=== PATIENT | female | born 1980 | race Caucasian/White ===

== ENCOUNTER → 2017-01-22 | Outpatient (REF) | payer BC, OTHER | LOC: M LAB REF 13:44 | PROVIDERS: ATTEND Advanced Practice Midwife | DX: Z11.3 Encounter for screening for infections with a predominantly sexual mode of transmission (principal) ==

== ENCOUNTER → 2017-05-09 | Outpatient (REF) | payer BC ==
[2017-05-09 15:00] LABS: BASO # 0.1 10^3/uL (0.0-0.2); BASO % 0.7 % (0.0-1.0); EOS # 0.1 10^3/uL (0.0-0.50); EOS % 1.4 % (0.0-3.0); IMMATURE GRANULOCYTE % 0.2 % (0-0); LYMPH # 2.8 10^3/uL (1.5-4.5); LYMPH % 32.9 % (24.0-44.0); MEAN CORPUSCULAR HGB CONC 33.7 g/dl (32.0-36.5); MONO # 0.5 10^3/uL (0.0-0.8); MONO % 5.6 % (0.0-5.0); NEUTROPHILS % 59.2 % (36.0-66.0); PLATELET COUNT, AUTOMATED 205 10^3/uL (150-450); RED CELL DISTRIBUTION WIDTH 12.6 % (11.5-14.5); WHITE BLOOD COUNT 8.5 10^3/uL (4.0-10.0)
[2017-05-09 15:33] LABS: ALBUMIN 4.7 GM/DL (3.2-5.2); ALBUMIN/GLOBULIN RATIO 1.68 (1.00-1.93); ALKALINE PHOSPHATASE 76 U/L (45-117); ALT/SGPT 21 U/L (12-78); ANION GAP 7 MEQ/L (8-16); AST/SGOT 19 U/L (7-37); BILIRUBIN,TOTAL 0.6 MG/DL (0.2-1.0); BLOOD UREA NITROGEN 17 MG/DL (7-18); CARBON DIOXIDE LEVEL 30 MEQ/L (21-32); CHLORIDE LEVEL 102 MEQ/L (98-107); CHOLESTEROL LEVEL 199 MG/DL (<200); CREATININE FOR GFR 0.74 MG/DL (0.55-1.02); FREE T4 0.92 NG/DL (0.76-1.46); GLOMERULAR FILTRATION RATE > 60.0 (>60); GLUCOSE, FASTING 89 MG/DL (70-105); POTASSIUM SERUM 4.1 MEQ/L (3.5-5.1); SODIUM LEVEL 139 MEQ/L (136-145); TOTAL PROTEIN 7.5 GM/DL (6.4-8.2); TRIGLYCERIDES LEVEL 57 MG/DL (<150)
== END ==
LOC: M SFHCSACK 10:16
PROVIDERS: ATTEND Physician Assistant
DX: N92.6 Irregular menstruation, unspecified (principal); Z13.220 Encounter for screening for lipoid disorders; Z13.29 Encounter for screening for other suspected endocrine disorder; Z13.21 Encounter for screening for nutritional disorder

== ENCOUNTER → 2017-12-08 | Outpatient (CLI) | payer BC | LOC: M WUC 09:10 | DX: M25.571 Pain in right ankle and joints of right foot (principal); S92.424A Nondisplaced fracture of distal phalanx of right great toe, initial encounter for closed fracture; X58.XXXA Exposure to other specified factors, initial encounter; Y92.9 Unspecified place or not applicable; M79.89 Other specified soft tissue disorders | CPT/HCPCS: 73610 ==

== ENCOUNTER → 2018-01-27 | Outpatient (CLI) | payer BC | LOC: M WUC 10:55 | DX: S29.011A Strain of muscle and tendon of front wall of thorax, initial encounter (principal); W18.30XA Fall on same level, unspecified, initial encounter; Y92.009 Unspecified place in unspecified non-institutional (private) residence as the place of occurrence of the external cause | CPT/HCPCS: 71101 ==

== ENCOUNTER 2018-02-02 20:26 | Emergency (ER) | payer BC ==
[2018-02-02] MEDS: KETOROLAC 30 MG/ML VIAL (J1885) IV (21:21)
[2018-02-02] MEDS: NS 1,000 ML IV (21:21)
[2018-02-02 21:27] LABS: BASO % 0.4 % (0.0-1.0); EOS # 0.2 10^3/uL (0.0-0.50); EOS % 2.3 % (0.0-3.0); HEMATOCRIT 38.2 % (36.0-47.0); IMMATURE GRANULOCYTE % 0.2 % (0-3.0); LYMPH # 3.6 10^3/uL (1.5-4.5); MEAN CORPUSCULAR HEMOGLOBIN 33.2 pg (27.0-33.0); MEAN CORPUSCULAR VOLUME 97.4 fl (80.0-96.0); MONO # 0.7 10^3/uL (0.0-0.8); MONO % 7.3 % (0.0-5.0); NEUTROPHILS # 4.5 10^3/uL (1.8-7.7); NEUTROPHILS % 49.8 % (36.0-66.0); PLATELET COUNT, AUTOMATED 218 10^3/uL (150-450); RED BLOOD COUNT 3.92 10^6/uL (4.00-5.40); RED CELL DISTRIBUTION WIDTH 13.2 % (11.5-14.5); WHITE BLOOD COUNT 9.1 10^3/uL (4.0-10.0)
[2018-02-02 21:35] LABS: CONTROL LINE HCG INT CTR LINE PRESENT; HCG, SERUM QUALITATIVE NEGATIVE (NEGATIVE)
[2018-02-02 21:42] LABS: INR 1.07
[2018-02-02 21:43] LABS: PARTIAL THROMBOPLASTIN TIME 25.8 SECONDS (25.4-37.6)
[2018-02-02 22:07] LABS: ANION GAP 7 MEQ/L (8-16); BLOOD UREA NITROGEN 20 MG/DL (7-18); CALCIUM LEVEL 8.6 MG/DL (8.5-10.1); CARBON DIOXIDE LEVEL 29 MEQ/L (21-32); CHLORIDE LEVEL 103 MEQ/L (98-107); CK-MB VALUE MASS < 1.0 NG/ML (<3.6); CPK CREATINE PHOSPHOKINASE 125 U/L (26-192); CREATININE FOR GFR 0.78 MG/DL (0.55-1.30); GLOMERULAR FILTRATION RATE > 60.0 (>60); GLUCOSE, FASTING 91 MG/DL (70-100); POTASSIUM SERUM 3.9 MEQ/L (3.5-5.1); SODIUM LEVEL 139 MEQ/L (136-145); TROPONIN I < 0.02 NG/ML (< 0.10)
[2018-02-02] MEDS ORDERED: ISOVUE-370 76% 100ML VIAL (Q9967) As Ordered (22:41)
[2018-02-02] MEDS: dexameTHASONE 20 MG/5 ML VIAL (J1100) IV (23:57)
== END 2018-02-03 00:11 | disposition home or self-care (01) ==
LOC: M ED 02-03 00:11
DX: R07.1 Chest pain on breathing (principal); I45.19 Other right bundle-branch block; F41.9 Anxiety disorder, unspecified; F32.9 Major depressive disorder, single episode, unspecified; Z72.0 Tobacco use; Z97.5 Presence of (intrauterine) contraceptive device; Z98.82 Breast implant status; Z79.899 Other long term (current) drug therapy
CPT/HCPCS: J1100

== ENCOUNTER → 2018-08-29 | Outpatient (REF) | payer BC ==
[~2018-08-29] MED LIST: DULO1CAP; KETO10TAB PO; PRED20TA PO
== END ==
LOC: M LAB REF 12:35
PROVIDERS: ATTEND Physician Assistant
DX: J02.9 Acute pharyngitis, unspecified (principal)

== ENCOUNTER → 2019-03-19 | Outpatient (REF) | payer BC ==
[~2019-03-19] MED LIST changes: -DULO1CAP; +DULO1CAP4
[2019-03-23 14:40] LABS: HPV HYBRID CAPTURE II Positive (Negative)
== END ==
LOC: M LAB REF 17:45
PROVIDERS: ATTEND Advanced Practice Midwife
DX: Z12.4 Encounter for screening for malignant neoplasm of cervix (principal)
CPT/HCPCS: 87624; G0123

== ENCOUNTER → 2019-03-25 | Outpatient (CLI) | payer BC ==
[2019-03-25 13:23] LABS: FREE T4 0.73 NG/DL (0.76-1.46); PROLACTIN 3.8 NG/ML; THYROID STIMULATING HORMONE 0.758 uIU/ML (0.358-3.740)
[2019-03-28 00:06] LABS: 17 HYDROXY PROGESTERONE 33 ng/dL (.); DEHYDROEPIANDROSTERONE SULFATE 181.9 ug/dL (57.3-279.2); INSULIN LEVEL 3.9 uIU/mL (2.6-24.9); TESTOSTERONE FREE (DIRECT) 1.5 pg/mL (0.0-4.2)
== END ==
LOC: M WUC 09:50
PROVIDERS: ATTEND Advanced Practice Midwife
DX: R63.5 Abnormal weight gain (principal)

== ENCOUNTER → 2019-08-31 | Outpatient (POV) | payer BC ==
[~2019-08-31] VITALS: Ht 170.2 cm; Wt 59.1 kg
[2019-08-31 09:30] VITALS: BP 127/80
--- NOTE | 2019-09-01 12:21 | IRCOV ---
[facility] IR Consult Office Visit IR Consult Office Visit DATE: Aug 31, 2019 REASON FOR CONSULTATION/CHIEF COMPLAINT: Varicose veins. 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 No prior varicose vein surgery. She is on her feet all day due to her work. Positive family history of varicose veins. No prior deep vein thrombosis. ALLERGIES: Please see below. HOME MEDICATIONS: Please see below. PAST MEDICAL HISTORY: Noncontributory PAST SURGICAL HISTORY: Cardiac ablation 2004 Breast augmentation 2009 Tubal ligation 2009 FAMILY HISTORY: Varicose veins SOCIAL HISTORY: pediatric social worker. Current smoker, occasional alcohol and marijuana. REVIEW OF SYSTEMS: Otherwise negative PHYSICAL EXAMINATION: VITAL SIGNS: Please see below. GENERAL APPEARANCE: Appears well. Comfortable at rest. HEENT: No scleral icterus. RESPIRATORY: Normal breathing at rest. CARDIOVASCULAR: Normal rate. ABDOMEN: Soft nontender. EXTREMITIES: Left lower extremity: Visible bulging varicose veins posterior to the calf and also along the GSV distribution. Tender on palpation but compressible. No skin thickening or lipodermatosclerosis. No hemosiderin deposition. No edema. Skin warm to touch. Right lower extremity:Visible bulging varicose veins posterior to the calf and also along the GSV distribution. Tender on palpation but compressible. No skin thickening or lipodermatosclerosis. No hemosiderin deposition. No edema. Skin warm to touch. NEUROLOGICAL: Alert and oriented. PSYCHIATRIC: Appropriate to circumstance. LABORATORY DATA: No recent labs. Imaging: No lower extremity venous reflux study. 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 I'll obtain a bilateral lower extremity venous reflux study to look for incompetency of the superficial veins. If this is positive, she will be a good candidate for EVLT therapy. We'll call the patient back once the study is done. Bilateral thigh-high compression stockings ordered. I spent 30 minutes in consultation with the patient. Thank you for this referral. Erica Faust Allergies Coded Allergies: MS - No Known Drug Allergy (Verified Allergy, Unknown, 09/11/12) Home Medications Scheduled Ketorolac Tromethamine (Ketorolac Tromethamine), 10 MG PO TID Prednisone (Prednisone), 60 MG PO DAILY Miscellaneous Medications Duloxetine Hcl (Duloxetine HCl), (Reported) VS, I&O, 24H, Fishbone Vital Signs/I&O Vital Signs Date Time Temp Pulse Resp B/P (MAP) Pulse Ox O2 Delivery O2 Flow Rate FiO2 08/31/19 09:30 97.9 83 16 127/80 (96) 100 MALLORY JEWELL MD Sep 01, 2019 12:21
== END ==
LOC: M IRPOV 09:18
PROVIDERS: ATTEND Radiology Diagnostic Radiology
DX: I83.813 Varicose veins of bilateral lower extremities with pain (principal); F17.210 Nicotine dependence, cigarettes, uncomplicated; F12.90 Cannabis use, unspecified, uncomplicated; Z98.51 Tubal ligation status; Z98.82 Breast implant status

== ENCOUNTER → 2019-09-01 | Outpatient (CLI) | payer BC ==
--- NOTE | 2019-09-01 12:30 | REP ---
Clinical: Varicosities. Technique: Real time hopkins scale and color Doppler evaluation of the bilateral lower extremities using linear high frequency transducer. Findings: Bilateral lower extremities demonstrate normal compressibility, flow, and wave characteristics in response to respiration and augmentation without evidence for deep venous thrombosis. Right lower extremity demonstrates very minimal reflux through the popliteal vein when standing. Left lower extremity demonstrates reflux through the common femoral vein, superficial femoral vein, and popliteal vein as well as reflux through the proximal and mid greater saphenous vein with small perforating collaterals. Proximal greater saphenous vein at the saphenofemoral junction measures 5.3 mm diameter with reflux duration of 1.8 seconds while the mid greater saphenous vein at the thigh measures 3.1 mm diameter with reflux duration of 8.0 seconds. Impression: 1. No evidence for deep venous thrombosis. 2. Reflux through the deep and superficial system of the left lower extremity. Electronically Signed by Brock Rose MD 09/01/2019 12:22 P
== END ==
LOC: M RAD 09:26
PROVIDERS: ATTEND Radiology Diagnostic Radiology
DX: I83.813 Varicose veins of bilateral lower extremities with pain (principal)

== ENCOUNTER → 2019-09-08 | Outpatient (CLI) | payer BC | LOC: M LABSMTC 12:36 | PROVIDERS: ATTEND Family Medicine | DX: Z11.59 Encounter for screening for other viral diseases (principal); Z20.828 Contact with and (suspected) exposure to other viral communicable diseases ==

== ENCOUNTER → 2019-10-05 | Outpatient (POV) | payer BC ==
--- NOTE | 2019-10-06 13:59 | IRPN ---
[facility] IR Progress Note IR Progress Note DATE: Oct 05, 2019 Tele follow up FOLLOW-UP: Patient with symptomatic lower extremity varicose veins presents for US results and follow up. Imaging: I personally reviewed the US venous reflux study of both lower extremities performed august 2019. There is abnormal reflux in the left GSV > 0.5 seconds. The right GSV does not show reflux. IMPRESSION: Patient with symptomatic left worse then right lower extremity varicose veins has positive reflux in the left GSV. This is indication for treatment. We will schedule the patient for left leg GSV EVLT. Thank you for this referral Allergies Coded Allergies: MS - No Known Drug Allergy (Verified Allergy, Unknown, 09/11/12) MALLORY JEWELL MD Oct 06, 2019 13:59
== END ==
LOC: M TMIRPOV 09:23
PROVIDERS: ATTEND Radiology Diagnostic Radiology
DX: I83.893 Varicose veins of bilateral lower extremities with other complications (principal)

== ENCOUNTER → 2019-10-22 | Outpatient (CLI) | payer BC ==
[~2019-10-22] MED LIST changes: +HYDR-3713 PO; +LIDOCAINE 1% MDV 20ML VIAL As Ordered ONE; +LIDOCAINE 2% MDV 20ML VIAL As Ordered ONE; +MIDAZOLAM INJ 2MG/2ML VIAL (J2250 PER 1MG) As Ordered ONE; +PROMETHAZINE INJ 25 MG/ML VIAL (J2550) As Ordered ONE; +diphenhydrAMINE 50MG/ML VIAL (J1200) As Ordered ONE; +fentaNYL 100 MCG/2 ML INJECTION (J3010) As Ordered ONE
[2019-10-22 10:09] VITALS: BP 113/67
--- NOTE | 2019-10-22 17:52 | REP ---
LEFT LOWER EXTREMITY VENOUS ULTRASOUND: SONOGRAPHIC GUIDANCE. HISTORY: Left leg EVLT. FINDINGS: Sonographic guidance is provided to Dr. Hogan to facilitate performance of vascular procedure. Electronically Signed by Ang Soliz MD 10/25/2019 09:16 A
--- NOTE | 2019-10-25 11:55 | POST-OPPD ---
Postoperative Procedure Note Date Of Procedure: October 22, 2019 Time Of Procedure: 11:49 PREOPERATIVE DIAGNOSIS: left leg varicose veins POSTOPERATIVE DIAGNOSIS: same FINDINGS: clemens scale and doppler images obtained of the left lower extremity demonstrate dilated greater saphenous jose with greater then > 0.5 seconds reflux on standing. The common femoral vein is patent and compressible. PROCEDURE: The site was prepped and draped in the usual sterile fashion. Moderate sedation was administered for 30 minutes with the aid of a trained independent RN observer who monitored the patient's physiologic status. Lidocaine was used to anesthetize the skin overlying the acces site for GSV. A micropuncture needle was used under ultrasound guidance to access the greater saphenous vein in the distal thigh. The vein immediately collapsed and became spasmodic along its entire length back to the CFV. The procedure could not be performed. Patient will be brought back for repeat attempt. SURGEON: Samira ANESTHESIA: Mod sed ESTIMATED BLOOD LOSS: < 5 ml COMPLICATIONS: unable to proceed POSTOPERATIVE CONDITION: stable MALLORY JEWELL MD October 25, 2019 11:55
== END ==
LOC: M IRPRO 06:57
PROVIDERS: ATTEND Radiology Diagnostic Radiology
DX: I83.892 Varicose veins of left lower extremity with other complications (principal)
CPT/HCPCS: 36000; 76940; 99152; 99153; J1200; J2250; J3010

== ENCOUNTER → 2019-10-29 | Outpatient (CLI) | payer BC ==
[~2019-10-29] MED LIST changes: -HYDR-3713 PO
--- NOTE | 2019-10-29 09:25 | IRHP ---
[facility] IR Pre-Procedure H & P General Date of Service: October 29, 2019 Procedure: Same Day Surgery Interval History and Physical I have seen the patient and reviewed last H & P performed within 30 days. There is no significant interval change. History of Present Illness Chief Complaint The patient is a 39-year-old female admitted with a reason for visit of Varicose Veins. PRE-PROCEDURE DIAGNOSIS: varicose veins HEART:normal rate. LUNGS: normal breathing at rest. ASA Classification ASA Classification: I-Healthy Mallampati Score: I NPO: Yes Problems with prior sedation: No Obstructive Sleep Apnea: No Plan moderate sedation Allergies Coded Allergies: MS - No Known Drug Allergy (Verified Allergy, Unknown, 09/11/12) Home Medications Discontinued Medications Duloxetine Hcl (Duloxetine HCl), (Reported) Discontinued Reason: Pt states not taking Ketorolac Tromethamine (Ketorolac Tromethamine), 10 MG PO TID Discontinued Reason: Pt states not taking Prednisone (Prednisone), 60 MG PO DAILY Discontinued Reason: Pt states not taking VS, I&O, 24H, Fishbone Vital Signs/I&O Vital Signs Date Time Temp Pulse Resp B/P (MAP) Pulse Ox O2 Delivery O2 Flow Rate FiO2 10/29/19 09:15 75 16 99 10/29/19 09:05 Nasal Cannula 3 10/29/19 06:51 99.6 MALLORY JEWELL MD October 29, 2019 09:25
--- NOTE | 2019-10-29 09:35 | REP ---
IR Endovenous laser treatment for left leg varicose vein. IR Ultrasound of the left leg. IR Tumescent anesthesia under ultrasound guidance. IR moderate sedation. Clinical information: Left leg varicose veins. Pain and edema. Abnormal > 0.5-second reflux in GSV. Physician: Dr. Hogan. Procedure: The patient was advised of the benefits, risks and alternatives of the procedure and informed consent was obtained. The time-out was performed with verification of the patient's name, MRN, site of procedure and type of procedure to be performed. The patient was positioned in the supine position on the table. The site was prepped and draped in the usual sterile fashion. Moderate sedation was performed by the physician including the presence of an independent trained observer who assisted in monitoring the patient's level of consciousness and physiologic status. Following the administration of fentanyl and Versed , the physician spent 60 minutes of continuous face to face time with the patient. Ultrasound of the left leg demonstrates dilated greater saphenous vein. Prior 2 sonograms document reflux in the vein and therefore further interrogation was not performed. The access site was identified with ultrasound and anesthetized with lidocaine. The greater saphenous vein was accessed under ultrasound guidance distal thigh, using a micro introducer needle. An 018 cope wire was advanced into the vein, tracked under ultrasound guidance to the saphenofemoral junction. Incision at the access site was made using a scalpel. The needle was removed and a micro sheath was advanced over the wire under ultrasound guidance. The wire was exchanged for a long wire which was advanced under ultrasound guidance to the saphenofemoral junction. The micro sheath was removed over the wire and the access catheter was advanced over the wire under ultrasound guidance and positioned >2 centimeters from the saphenofemoral junction. The laser fiber was advanced through the catheter under ultrasound guidance and positioned with the tip located > 2 cm from the saphenous femoral junction. Tumescent anesthesia was then injected under ultrasound guidance along the entire length of the vein to be treated. Repeat ultrasound of the saphenofemoral junction was used to confirm positioning of the tip of the laser back > 2 cm from junction. The patient was positioned in Trendelenburg. The laser was then activated and under ultrasound guidance used to laser the greater saphenous vein back to the access point. Simultaneous manual compression was applied to the treated vein. Treatment: Wattage: 7 Time: 93 seconds Pullback rate 1 cm every 7 seconds Total Energy deposited 654 joules Treatment 50 joules per centimeter of vein. The fiber, catheter and sheath were removed, pressure held and hemostasis achieved. A sterile dressing was applied to the site. Compression dressing was then applied to the leg, from ankle to groin. The patient tolerated the procedure well and was returned to the PRU in stable condition. EBL: < 5 ml. Complications: None. Impression: 1. Ultrasound demonstrates incompetent left greater saphenous vein. 2. Successful left greater saphenous vein ablation with laser. 3. Compression dressing applied from ankle to groin. Patient to return in 1 week for follow up ultrasound at which time the compression dressing will be switched to stockings. Thank you this referral. Electronically Signed by Arline Hogan MD 10/29/2019 09:35 A
[2019-10-29 11:00] VITALS: BP 106/57
== END ==
LOC: M IRPRO 06:33
PROVIDERS: ATTEND Radiology Diagnostic Radiology
DX: I83.812 Varicose veins of left lower extremity with pain (principal)
CPT/HCPCS: 36478; 76940; 99152; 99153; C1894; J1200; J2250; J3010

== ENCOUNTER → 2019-11-16 | Outpatient (POV) | payer BC ==
[~2019-11-16] MED LIST changes: -LIDOCAINE 1% MDV 20ML VIAL As Ordered ONE; -LIDOCAINE 2% MDV 20ML VIAL As Ordered ONE; -MIDAZOLAM INJ 2MG/2ML VIAL (J2250 PER 1MG) As Ordered ONE; -PROMETHAZINE INJ 25 MG/ML VIAL (J2550) As Ordered ONE; -diphenhydrAMINE 50MG/ML VIAL (J1200) As Ordered ONE; -fentaNYL 100 MCG/2 ML INJECTION (J3010) As Ordered ONE
--- NOTE | 2019-11-18 12:24 | IRPN ---
[facility] IR Progress Note IR Progress Note DATE: Nov 16, 2019 Consent was given by patient for this telephone call. Length of call was 15 minutes. FOLLOW-UP: Status post left leg EVLT for incompetent greater saphenous vein, 3 weeks ago. Patient states for the last week or so she's had redness and tenderness at the access site and tenderness along the medial edge of the left leg. Denies calf tightness, leg swelling or calf swelling. Denies chest pain or shortness of breath. Patient did not follow up for her routine follow-up left leg ultrasound. ON EXAMINATION: I reviewed the images sent to me by the patient of her left leg. There is redness along the course of the treated GSV. The leg itself does not appear swollen. The calf is not swollen. IMPRESSION: 3 weeks status post left leg is EVLT treatment. Based on the symptoms and the pictures, this appears to be superficial thrombophlebitis. I have advised the patient to take ibuprofen 800 milligrams 3 times a day with food. This will take 1-2 weeks to clear. Patient advised to get her follow-up ultrasound to assess the deep venous system. Allergies Coded Allergies: MS - No Known Drug Allergy (Verified Allergy, Unknown, 09/11/12) MALLORY JEWELL MD Nov 18, 2019 12:24
== END ==
LOC: M TMIRPOV 13:25
PROVIDERS: ATTEND Radiology Diagnostic Radiology
DX: Z48.812 Encounter for surgical aftercare following surgery on the circulatory system (principal)

== ENCOUNTER → 2019-11-22 | Outpatient (POV) | payer BC ==
--- NOTE | 2019-11-24 11:31 | IRPN ---
[facility] IR Progress Note IR Progress Note DATE: Nov 22, 2019 FOLLOW-UP: Status post EVLT 4 weeks ago, patient complains of pain along inner thigh. ON EXAMINATION: Focal tenderness and cord like superficial vein, medial thigh, in region of treated GSV. No limb swelling. No calf tenderness. I obtained clemens scale sonographic images of the left groin. Patent and compressible left common femoral and femoral vein without thrombus. Treated saphenous vein is successfully occluded. IMPRESSION: Status post EVLT, patient has localized thrombophlebitis. Symptoms are improving with ibuprofen as recommended. Limited ultrasound shows no common femoral or femoral DVT. Patient still needs to follow up for her routine post EVLT ultrasound. Thank you for this referral Allergies Coded Allergies: MS - No Known Drug Allergy (Verified Allergy, Unknown, 09/11/12) MALLORY JEWELL MD Nov 24, 2019 11:31
== END ==
LOC: M IRPOV 15:01
PROVIDERS: ATTEND Radiology Diagnostic Radiology
DX: Z48.812 Encounter for surgical aftercare following surgery on the circulatory system (principal); I80.02 Phlebitis and thrombophlebitis of superficial vessels of left lower extremity

== ENCOUNTER → 2020-03-01 | Outpatient (CLI) | payer BC ==
--- NOTE | 2020-03-10 10:13 | REP ---
BILATERAL MAMMOGRAM WITH 3D TOMOSYNTHESIS, DIAGNOSTIC MAMOGRAM RIGHT BREAST AND RIGHT BREAST ULTRASOUND HISTORY: Lump upper outer quadrant right breast. No family history of breast cancer. Tyrer-Cuzick lifetime risk of breast cancer 9.6%. COMPARISON: None. TECHNIQUE: MLO and CC views of bilateral breasts performed with 3D tomosynthesis. Routine images, as well as implant displaced views are performed bilaterally. FINDINGS: Moderate fibroglandular densities are scattered bilaterally. Volpara breast density is D. Bilateral breast implants are grossly intact with no extracapsular rupture. I do not see a discrete mass in either breast. There are no suspicious clusters of microcalcifications. The area of the lump is marked on the skin with a triangular marker over the upper outer quadrant of the right breast and there is no underlying mammographic abnormality identified. Real-time sonographic evaluation of upper outer quadrant right breast is performed in the region of the reported palpable lump, which the patient reports is about the size of a pencil eraser. In the 10 o'clock region, there are three small cystic structures identified in the region of the palpable lump. These appear benign. These measure 6 x 9 x 5 mm, 5 x 5 x 2 mm, and 5 x 5 x 2 mm. IMPRESSION: ACR 2 benign. No mammographic abnormalities are seen, with no evidence of mass or clustered microcalcifications bilaterally. There is no extracapsular rupture identified of bilateral breast implants. By ultrasound at the site of the palpable lump in the upper outer quadrant of the right breast, there are three small cysts identified, the largest has a maximum diameter of 9 mm. These are benign. This mammogram was interpreted with the aid of an FDA approved computer-aided detection system. The patient states her last clinical breast exam was 02/2020. Patient letter: 2. BISHNUD
== END ==
LOC: M WHC 07:59
PROVIDERS: ATTEND Advanced Practice Midwife
DX: R92.2 Inconclusive mammogram (principal); N60.02 Solitary cyst of left breast
CPT/HCPCS: 76642; 77066; G0279

== ENCOUNTER → 2020-03-17 | Outpatient (CLI) | payer BC ==
--- NOTE | 2020-03-22 07:07 | REP ---
RIGHT BREAST ULTRASOUND HISTORY: Palpable lump. FINDINGS: Real-time sonographic evaluation of the right breast is performed in the region of the palpable lump at 11 o'clock. At that location, approximately 3 cm from the nipple, there is an oval hypoechoic nodular structure 7 x 8 x 3 mm. IMPRESSION: ACR 4 suspicious. Complex cyst or solid nodule 11 o'clock right breast approximately 3 cm from the nipple measuring 7 x 8 x 3 mm. Recommend ultrasound- guided biopsy. MTDD
== END ==
LOC: M WHC 11:58
PROVIDERS: ATTEND Surgery
DX: N63.10 Unspecified lump in the right breast, unspecified quadrant (principal)

== ENCOUNTER → 2020-04-04 | Outpatient (POV) | payer BC ==
--- NOTE | 2020-04-05 12:21 | IRPN ---
[facility] IR Progress Note IR Progress Note DATE: Apr 03, 2020 Patient agreed to this telephone consultation. I spent 20 minutes reviewing patient's prior imaging and talking to the patient. FOLLOW-UP: Status post left leg greater saphenous vein EVLT therapy back in October. Patient states left leg swelling and discomfort have improved since the procedure. About one week ago, patient suddenly woke up in the middle of the night with pinpoint pain in the medial thigh around the area of prior access. Patient states at that time she felt a little knot under the skin. The pain was intense and she used Ibuprofen for pain relief. Pain has since resolved. She is able to ambulate. No pain in the calf or swelling of the leg. ON EXAMINATION: I reviewed the pictures sent to me by the patient. A focal area of skin reddening is noted in the medial thigh. IMAGING: I personally reviewed the ultrasound of the left lower extremity performed in August 2019. At that time there was no reflux in the lesser saphenous vein. IMPRESSION: Short-lived focal pain and tenderness in the medial thigh, resolved with ibuprofen. This may or may not be related to prior EVLT therapy and/or may be a focal thrombophlebitis. Patient denies limb swelling or calf swelling. However, patient does note there is still a prominent visible varicose vein along the back of her calf which did not go away with treatment. We will obtain a left lower extremity venous ultrasound to look for any deep vein thrombosis and or reflux in the lesser saphenous vein. Allergies Coded Allergies: MS - No Known Drug Allergy (Verified Allergy, Unknown, 09/11/12) MALLORY JEWELL MD Apr 05, 2020 12:21
== END ==
LOC: M TMIRPOV 07:51
PROVIDERS: ATTEND Radiology Diagnostic Radiology
DX: M79.652 Pain in left thigh (principal); I83.92 Asymptomatic varicose veins of left lower extremity

== ENCOUNTER → 2020-05-01 | Outpatient (CLI) | payer BC ==
--- NOTE | 2020-05-01 15:38 | REP ---
INDICATION: RIGHT BREAST MASS. COMPARISON: Mammogram and ultrasound 03/01/2020, ultrasound right breast 03/17/2020. TECHNIQUE: Three Andree MRI imaging was performed with a dedicated breast coil. Axial, coronal, and sagittal T1 and T2 weighted scans were obtained with and without fat saturation in the usual fashion. The study includes dynamically acquired post gadolinium-enhanced imaging with image subtraction. Maximum intensity projection and multi planar reformation imaging is included as well. This study is interpreted with the aid of 4th aspectD, an FDA approved computer aided detection (CAD) software program, on a dedicated breast MRI workstation. The gadolinium enhancement dose is 11 mL of intravenous ProHance. FINDINGS: Bilateral breast implants appear intact with no evidence of intracapsular or extracapsular rupture. There is moderate fibroglandular tissue present bilaterally. Multiple subcentimeter cysts are seen in both breasts, predominantly in the upper half of both breasts. There is mild background parenchymal enhancement bilaterally no suspicious axillary adenopathy is seen. There is no suspicious enhancing mass or morphologic abnormality bilaterally. IMPRESSION: BI-RADS category 2 benign bilateral breast MRI. Bilateral breast implants are intact. There are multiple subcentimeter cysts in both breasts, predominantly in the upper aspect of each breast. No suspicious enhancing mass or morphologic abnormality. There is no suspicious enhancing mass at the site of the hypoechoic nodule at 11 o'clock right breast as identified by ultrasound of 03/17/2020. This likely represented a complex benign cyst. <Electronically signed by Sergio Fernandez > 05/01/20 [id number]
== END ==
LOC: M RAD 10:53
PROVIDERS: ATTEND Surgery
DX: N63.10 Unspecified lump in the right breast, unspecified quadrant (principal); Z98.82 Breast implant status; N60.11 Diffuse cystic mastopathy of right breast; N60.12 Diffuse cystic mastopathy of left breast

== ENCOUNTER → 2020-05-01 | Outpatient (CLI) | payer BC ==
[~2020-05-01] MED LIST changes: +PROHANCE 279.3MG/ML 15ML VIAL As Ordered ONE
--- NOTE | 2020-05-01 12:54 | REP ---
INDICATION: VARICOSE VEINS COMPARISON: None. TECHNIQUE: Fernandez scale and color Doppler evaluation of the left lower extremity using linear high frequency transducer. FINDINGS: Ultrasound examination of the left lower extremity deep venous structures from the common femoral vein to the popliteal vein demonstrates normal compressibility flow and wave patterns in response to respiration and augmentation. There is no evidence for deep venous thrombosis. Patient is noted to be status post venous laser therapy and thrombosis of the greater saphenous vein. No evidence reflux disease noted. IMPRESSION: No evidence for deep venous thrombosis. No evidence for reflux. <Electronically signed by Brock Rose > 05/01/20 [id number]
== END ==
LOC: M RAD 11:01
PROVIDERS: ATTEND Radiology Diagnostic Radiology
DX: I83.90 Asymptomatic varicose veins of unspecified lower extremity (principal)
CPT/HCPCS: 93971; A9576

== ENCOUNTER → 2020-05-03 | Outpatient (CLI) | payer BC ==
[~2020-05-03] MED LIST changes: -PROHANCE 279.3MG/ML 15ML VIAL As Ordered ONE
[2020-05-03 16:21] LABS: HEMATOCRIT 40.9 % (36.0-47.0); HEMOGLOBIN 13.4 g/dl (12.0-15.5); MEAN CORPUSCULAR HEMOGLOBIN 33.3 pg (27.0-33.0); MEAN CORPUSCULAR HGB CONC 32.8 g/dl (32.0-36.5); MEAN CORPUSCULAR VOLUME 101.5 fl (80.0-96.0); PLATELET COUNT, AUTOMATED 249 10^3/uL (150-450); RED BLOOD COUNT 4.03 10^6/uL (4.00-5.40); WHITE BLOOD COUNT 6.7 10^3/uL (4.0-10.0)
[2020-05-03 16:46] LABS: ALBUMIN 4.4 GM/DL (3.2-5.2); ALT/SGPT 34 U/L (12-78); BILIRUBIN,TOTAL 0.7 MG/DL (0.2-1.0); BLOOD UREA NITROGEN 17 MG/DL (7-18); CALCIUM LEVEL 9.2 MG/DL (8.5-10.1); CARBON DIOXIDE LEVEL 27 MEQ/L (21-32); CHLORIDE LEVEL 103 MEQ/L (98-107); CHOLESTEROL LEVEL 206 MG/DL (<200); CHOLESTEROL RISK RATIO 1.872 (<5); GLOMERULAR FILTRATION RATE > 60.0 (>60); GLUCOSE, FASTING 96 MG/DL (70-100); HDL CHOLESTEROL 110 MG/DL (>40); LDL CHOLESTEROL 86 MG/DL (<100); NON-HDL-C 96 MG/DL; POTASSIUM SERUM 4.5 MEQ/L (3.5-5.1); SODIUM LEVEL 137 MEQ/L (136-145); TOTAL PROTEIN 7.2 GM/DL (6.4-8.2); TRIGLYCERIDES LEVEL 50 MG/DL (<150)
== END ==
LOC: M WUC 10:42
PROVIDERS: ATTEND Student in an Organized Health Care Education/Training Program
DX: Z13.220 Encounter for screening for lipoid disorders (principal)

== ENCOUNTER → 2020-06-06 | Outpatient (CLI) | payer BC ==
--- NOTE | 2020-06-06 12:46 | REP ---
INDICATION: PREOP COMPARISON: None. TECHNIQUE: PA and lateral. FINDINGS: The mediastinum and cardiac silhouette are normal. The lung gross are clear and without acute consolidation, effusion, or pneumothorax. The skeletal structures are intact and normal. IMPRESSION: No acute cardiopulmonary process. <Electronically signed by Brock Rose > 06/06/20 [id number]
[2020-06-06 16:15] LABS: HEMATOCRIT 40.8 % (36.0-47.0); HEMOGLOBIN 13.1 g/dl (12.0-15.5); MEAN CORPUSCULAR HEMOGLOBIN 32.5 pg (27.0-33.0); MEAN CORPUSCULAR HGB CONC 32.1 g/dl (32.0-36.5); MEAN CORPUSCULAR VOLUME 101.2 fl (80.0-96.0); PLATELET COUNT, AUTOMATED 224 10^3/uL (150-450); RED BLOOD COUNT 4.03 10^6/uL (4.00-5.40); WHITE BLOOD COUNT 7.8 10^3/uL (4.0-10.0)
[2020-06-06 16:33] LABS: BLOOD UREA NITROGEN 19 MG/DL (7-18); CALCIUM LEVEL 8.7 MG/DL (8.5-10.1); CARBON DIOXIDE LEVEL 29 MEQ/L (21-32); CHLORIDE LEVEL 101 MEQ/L (98-107); CREATININE FOR GFR 0.83 MG/DL (0.55-1.30); GLOMERULAR FILTRATION RATE > 60.0 (>60); GLUCOSE, FASTING 77 MG/DL (70-100); SODIUM LEVEL 139 MEQ/L (136-145)
== END ==
LOC: M WUC 12:18
PROVIDERS: ATTEND Podiatrist Foot & Ankle Surgery
DX: Z01.818 Encounter for other preprocedural examination (principal); M20.11 Hallux valgus (acquired), right foot

== ENCOUNTER → 2020-06-23 | Outpatient (CLI) | payer BC | LOC: M LABSMTC 10:44 | PROVIDERS: ATTEND Anesthesiology | DX: Z01.812 Encounter for preprocedural laboratory examination (principal); Z20.822 Contact with and (suspected) exposure to COVID-19 ==

== ENCOUNTER 2020-06-28 07:09 | Day surgery (SDC) | payer OTHER ==
[~2020-06-28] VITALS: Ht 170.2 cm; Wt 57.6 kg
[~2020-06-28 07:09] MED LIST changes: +BUPIVACAINE HCL 0.5% 30 ML VIAL As Ordered ONE; +LIDOCAINE 1% MDV 20ML VIAL SQ PRN; +LIDOCAINE 1% SDV 30ML VIAL As Ordered ONE; +LR 1,000 ML IV ONE; +ceFAZolin SOD 2 GM in IV 1 EA IV ONE; +dexameTHASONE 4 MG/ML 1ML VIAL (J1100 PER 1MG) As Ordered ONE
--- OUTSIDE RECORDS SUMMARY | 2020-06-28 07:13 | CCD | Continuity of Care Document ---
Author Author Rachel BALDWIN DPM Organization Unknown Address [address] [place] [address], [address] [place] [address] Phone [phone] Care Team Providers Care [employer] Developer Name Role Phone DIONY FaustM [phone] Problems Description No Information Available Social History Type Date Description Comments Sex Unknown ETOH Use Currently consumes alcohol Tobacco Use Start: Unknown Patient is a current smoker, smo kes every day smokes 11-20 cigs daily x20 years Allergies, Adverse Reactions, Alerts Description No Known Drug Allergies Medications Active Medications SIG Qnty Indications Ordering Provide r Date Fluconazole 150mg Tablets 1 By Mouth Every 3 Days For 2 Days Unknown Fluoxetine HCL 10mg Capsules Unknown Spironolactone 50mg Tablets Take One Tablet By Mouth Twice A Day With Food Unknown Valacyclovir HCL 500mg Tablets Take Two Tablets By Mouth Three Times A Day For 5 Days Un known Hydroxyzine Pamoate 25mg Capsules Take One Capsule By Mouth Every 8 Hours as Needed Unknown Immunizations Description No Information Available Vital Signs Date Vital Result Comment 04/10/2020 8:07am Height 67 inches 5'7" Weight 127.00 lb BP Systolic 133 mmHg BP Diastolic 84 mmHg Heart Rate 92 /min BMI (Body Mass Index) 19.9 kg/m2 Results Description No Information Available Procedures Description No Information Available Medical Devices Description No Information Available Encounters Description No Information Available Assessments Description No Information Available Plan of Treatment No Information Available Functional Status Description No Information Available Mental Status Description No Information Available Referrals Description No Information Available
--- OUTSIDE RECORDS SUMMARY | 2020-06-28 07:13 | CCD | Continuity of Care Document ---
Author Author Rachel BALDWIN DPM Organization Unknown Address [address] [place] [address], [address] [place] [address] Phone [phone] Care Team Providers Care Tying Machine Operator Name Role Phone DIONY Faust AUTM [phone] MD Jazzy Looney AUTM [phone] Problems Active Problems Provider Date Swelling of first metatarsal joint of hallux of right foot A mila Baldwin DPM Onset: 04/11/2020 Swelling of first metatarsal joint of hallux of left foot An nya Baldwin DPM Onset: 04/11/2020 Social History Type Date Description Comments Sex [...] BMI (Body Mass Index) 19.9 kg/m2 Results Test Acquired Date Facility Test Result H/L Range Note Complete Blood Count 06/06/2020 [facility] White Blood Count 7.8 10 Normal 4.0-10.0 Red Blood Count 4.03 10 Normal 4.00-5.40 Hemoglobin 13.1 g/dL Normal 12.0-15.5 Hematocrit 40.8 % Normal 36.0-47.0 Mean Corpuscular Volume 101.2 fl High 80.0-96.0 Mean Corpuscular Hemoglobin 32.5 pg Normal 27.0-33.0 Mean Corpuscular HGB Conc 32.1 g/dL Normal 32.0-36.5 Red Cell Distribution Width 12.3 % Normal 11.5-14.5 Platelet Count, Automated 224 10 Normal 150-450 Nucleated Red Blood Cell % 0.0 % Normal 0-0 Basic Metabolic Profile 06/06/2020 [facility] Glucose, Fasting 77 mg/dL Normal 70-100 Blood Urea Nitrogen 19 mg/dL High 7-18 Creatinine For GFR 0.83 mg/dL Normal 0.55-1.30 Glomerular Filtration Rate > 60.0 Normal >60 1 Sodium Level 139 mEq/L Normal 136-145 Potassium Serum 4.0 mEq/L Normal 3.5-5.1 Chloride Level 101 mEq/L Normal 98-107 Carbon Dioxide Level 29 mEq/L Normal 21-32 Anion Gap 9 mEq/L Normal 8-16 Calcium Level 8.7 mg/dL Normal 8.5-10.1 1 Units are mL/min/1.73 m2 Chronic Kidney Disease Staging per NKF: Stage I & II GFR >=60 Normal to Mildly Decreased Stage III GFR 30-59 Moderately Decreased Stage IV GFR 15-29 Severely Decreased Stage V GFR <15 Very Little GFR Left ESRD GFR <15 on BISCUITWARE BRUSHER Procedures Date Code Description Status 04/10/2020 03776 X-Ray Foot Complete Completed 04/10/2020 42950 X-Ray Foot Complete Completed Medical Devices Description No Information Available Encounters Type Date Location Provider Dx Diagnosis Office Visit 04/10/2020 10:15a [place] [facility] Marino Baldwin DPM M21.611 Bunion of right foot M21.612 Bunion of left foot Assessments Date Code Description Provider 04/10/2020 M21.611 Bunion of right foot Marino velasquez DPM 04/10/2020 M21.612 Bunion of left foot Marino palomino DPM Plan of Treatment Future Appointment(s):* 06/30/2020 10:45 am - Marino Baldwin DPM at [facility] * 06/28/2020 1:00 pm - Marino Baldwin DPM at [facility] Functional Status Description No Information Available Mental Status Description No Information Available Referrals Description No Information Available
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
--- OUTSIDE RECORDS SUMMARY | 2020-06-28 07:13 | CCD ---
Author Author [facility] Organization [facility] Address Unknown Phone Unavailable Care Team Providers Care Paper Cutting Machine Operator Name Role Phone Wilda Beltre Unavailable PROBLEMS Type Condition ICD9-CM Code [id number] Code Onset Dates Condition S tatus SNOMED Code Notes Problem Varicose veins of both lower extremities with pain I83.813 Active 89394417 Problem Smoker F17.200 Active 32010920 Problem Anxiety and depression F41.9 Active 003270389 Problem Tobacco dependence F17.200 Active 42497770 Problem Irregular menstruation N92.6 Active 76208456 Problem Condyloma A63.0 Active 16899124 ALLERGIES No Known Allergies ENCOUNTERS from 1982 to 2020-05-02 Encounter Location Date Provider Diagnosis [facility] Breast Care [address] [place] [address] 14 Mar, 2020 Wilda Beltre Unspecified lump in the right breast, up per outer quadrant N63.11 IMMUNIZATIONS Vaccine Route Administration Date Status Influenza [...] many cigarettes a day do you smoke? 11-20 Are you interested in quitting? Thinking about quitting Counseled the patient on smoking cessation, education provid ed 04/14/2020 REASON FOR REFERRAL No Information VITAL SIGNS Weight 130 lbs Mar, Weight-kg 58.97 kg Mar, Height 67 in Mar, BMI 20.36 kg/m2 Mar, MEDICATIONS Medication SIG (Take, Route, Frequency, Duration) Notes Start Da te End Date Status Vistaril 25 MG 1 capsule as needed Orally every 8 hrs for 30 da y(s) Aug, Not-Taking Mirena Active PROCEDURES No Information RESULTS No Results REASON FOR VISIT possible R excissional bx MEDICAL (GENERAL) HISTORY Type Description Date Medical [...] Treatment Notes Treatm ent Clinical Notes Mar, Unspecified lump in the righ t breast, upper outer quadrant (ICD-10 - N63.11) PLAN OF TREATMENT Next Appt Details Provider Name:Jazzy Looney 2020-06-06 09:00:00 AM, [address] [place], [address], Insurance Providers Payer Name Payer Address Payer Phone Insured Name Patient Relati onship to Insured Coverage Start Date Coverage End Date BCBS [place] PPO [phone] [facility] [place] [address] ARSH OROSCO self
--- OUTSIDE RECORDS SUMMARY | 2020-06-28 07:13 | CCD ---
Author Author [facility] Organization [facility] Address Unknown Phone Unavailable Care Team Providers Care Turpentine Farmer Name Role Phone Wilda Beltre Unavailable PROBLEMS Type Condition ICD9-CM Code [id number] Code Onset Dates Condition S tatus SNOMED Code Notes Problem Varicose veins of both lower extremities with pain I83.813 Active 47646308 Problem Smoker F17.200 Active 39386061 Problem Anxiety and depression F41.9 Active 915492277 Problem Tobacco dependence F17.200 Active 05401447 Problem Irregular menstruation N92.6 Active 55704676 Problem Condyloma A63.0 Active 09286790 ALLERGIES No Known Allergies ENCOUNTERS from 1982 to 2020-05-02 Encounter Location Date Provider Diagnosis [facility] Breast Care [address] [place] [address] 08 Mar, 2020 Wilda Beltre Breast mass, right N63.10 ; Breast pain, right N64.4 ; Nipple discharge N64.52 ; Smoker F17.200 [...] FOR REFERRAL No Information VITAL SIGNS Weight 130.8 lbs Mar, Height 67 in Mar, BMI 20.48 kg/m2 Mar, Respiratory Rate 18 /min Mar, Temperature 98.7 degrees Fahrenheit Mar, Blood pressure systolic 130 mm Hg Mar, Blood pressure diastolic 72 mm Hg Mar, MEDICATIONS Medication SIG (Take, Route, Frequency, Duration) Notes Start Da te End Date Status Vistaril 25 MG 1 capsule as needed Orally every 8 hrs for 30 da y(s) Aug, Not-Taking Mirena Active PROCEDURES No Information RESULTS No Results REASON FOR VISIT right breast mass MEDICAL (GENERAL) HISTORY Type Description Date Medical [...] Notes Treatm ent Clinical Notes Mar, Breast mass, right (ICD-10 - N63.10) I discussed with Ms. Orosco results of her imaging studies. I also provided her with a copy of the report. I explained to the patient that no suspicious lesion were seen on the mammogram. I also informed her that ultrasound show 3 benign looking cystic structures. Her implant was also intact. On clinical breast exam the mass which patient point out to me was located more around 10-11:00 2 cm from the nipple versus cysts were more around 9:00 7 cm from the nipple. I think the ultrasound which was done was more lateral to the area of palpable mass. I will repeat the ultrasound of the specific area at 10- 11:00 2 cm from the nipple to evaluate hypoechoic lesions seen on my in office ultrasound and to rule out malignancy. I will call patient with the results of that ultrasound. All questions were answered. Patient agrees with the plan. Mar, Breast pain, right (ICD-10 - N64.4) [...] pain. I discussed with her that some prjp-bua-iwsaonn supplements like evening primrose oil, vitamin E, [...] answered. Patient agrees with the plan. Mar, Nipple discharge (ICD-10 - N64.52) Patient repirts b/l nonspontaneous greenish/ whitish nipple discharge x 10 years. She is current smoker and was found to have some cysts on imaging. I have discussed with the patient various kinds of [...] the breast base on her family history. Mar, Other Time spent face to face with the patient with 50 % of time spent counseling the patient :40 MIN PLAN OF TREATMENT Treatment Notes Assessment Notes Clinical Notes Breast mass, right I discussed with Ms. Bere dos santos results of her imaging studies. I also provided her with a copy of the report. I explained to the patient that no suspicious lesion were seen on the mammogram. I also informed her that ultrasound show 3 benign looking cystic structures. Her implant was also intact.On clinical breast exam the mass which patient point out to me was located more around 10-11:00 2 cm from the nipple versus cysts were more around 9:00 7 cm from the nipple. I think the ultrasound which was done was more lateral to the area of palpable mass. I will repeat the ultrasound of the specific area at 10-11:00 2 cm from the nipple to evaluate hypoechoic lesions seen on my in office ultrasound and to rule out malignancy. I will call patient with the results of that ultrasound.All questions were answered. Patient agrees with the plan. Breast pain, right I have discussed with giovanna t that breast pain is quite common in women and that there are numerous causes of the breast pain. I have discussed with her cutting down on caffeine (coffee and chocolate), and modifying the salt intake. We also discuss that some medication can cause or aggravate breast pain.I discussed with her that some vwoi-rqg-thrfncg supplements like evening primrose oil, vitamin E, or omega-3 fatty acids can help with breast pain. I encouraged her to try these supplements one at the time and to allow adequate time for them to take an effect, i.e. at least 3-4 weeks per supplement.Patient may follow up with me on as needed basis.All questions were answered. Patient agrees with the plan. Nipple discharge Patient repirts b/l nonspont aneous greenish/ whitish nipple discharge x 10 years. She is current smoker and was found to have some cysts on imaging.I have discussed with the patient various kinds of [...] history of cancer Patient participated in ou [facility] screening program, Cancer IQ and she was not found to be at increasedrisk for cancer base on her family history. She does not qualify for genetictesting or high risk screening with MRI of the breast base on her familyhistory. Treatment Notes Test Name Order Date Breast U/S Unilateral Limited 2020-05-02 Next Appt Details Provider Name:Jazzy Looney, 2020-06-06 09:00:00 AM, [address] [place], [address], Insurance Providers Payer Name Payer Address Payer Phone Insured Name Patient Relati onship to Insured Coverage Start Date Coverage End Date BCBS STEPHANIE WINN PPO [phone] [facility] [place] [id number] ARSH OROSCO self
--- OUTSIDE RECORDS SUMMARY | 2020-06-28 07:13 | CCD ---
Author Author [facility] Organization [facility] Address Unknown Phone Unavailable Care Team Providers Care Nurse Specialist Name Role Phone Jazzy Looney Unavailable PROBLEMS Type Condition ICD9-CM Code [id number] Code Onset Dates Condition S tatus SNOMED Code Notes Problem Varicose veins of both lower extremities with pain I83.813 Active 65600971 Problem Smoker F17.200 Active 31223344 Problem Anxiety and depression F41.9 Active 199362080 Problem Tobacco dependence F17.200 Active 15663236 Problem Irregular menstruation N92.6 Active 36996811 Problem Condyloma A63.0 Active 05002329 ALLERGIES No Known Allergies ENCOUNTERS from 1982 to 2020-04-19 Encounter Location Date Provider Diagnosis [address] [address], Jazzy Looney Encounter to establish care with new doc tor Z76.89 ; Screening for lipid disorders Z13.220 and Refused influenza vaccine Z28.21 IMMUNIZATIONS Vaccine Route Administration Date Status Influenza [...] FOR REFERRAL No Information VITAL SIGNS Weight 128 lbs Apr, Height 67 in Apr, BMI 20.05 kg/m2 Apr, Heart Rate 67 /min Apr, Respiratory Rate 18 /min Apr, Temperature 99 degrees Fahrenheit Apr, Oximetry 100 Apr, Blood pressure systolic 120 mm Hg Apr, Blood pressure diastolic 76 mm Hg Apr, MEDICATIONS Medication SIG (Take, Route, Frequency, Duration) Start Date En d Date Status Vistaril 25 MG 1 capsule as needed Orally every 8 hrs f or 30 day(s) Aug, Not-Taking Mirena Active PROCEDURES No Information RESULTS No Results REASON FOR VISIT previous Raiza Faust patient MEDICAL (GENERAL) HISTORY Type Description Date Medical [...] STATUS No Information ASSESSMENTS Encounter Date Diagnosis Notes Apr, Refused influenza vaccine (ICD-10 - Z28. 21) Apr, Screening for lipid disorders (ICD-10 - Z13.220) Apr, Encounter to establish care with new shira zaragoza (ICD-10 - Z76.89) PLAN OF TREATMENT Treatment Notes Assessment Notes Clinical Notes Encounter to establish care with new doctor No concerns at this visit. Pap smear screening up-to-date. Screening for lipid disorders Patient is a smoker, will screen for lipid abnormalities at this time. Refused influenza vaccine Patient refuse d flu shot at this visit. Treatment Notes Test Name Order Date LIPID PANEL (CARDIAC RISK) 2020-04-19 Comprehensive Metabolic Profile (CMP) 2020-04-19 CBC - Complete Blood Count 2020-04-19 Next Appt Details prn Reason: Insurance Providers Payer Name Payer Address Payer Phone Insured Name Patient Relati onship to Insured Coverage Start Date Coverage End Date [employer] WINN PPO [id number] [facility] [place] [address] ARSH OROSCO self
--- OUTSIDE RECORDS SUMMARY | 2020-06-28 07:13 | CCD | Continuity of Care Document ---
Author Author Rachel BALDWIN DPM Organization Unknown Address [address] [place] [address], [address] [place] [address] Phone [phone] Care Team Providers Care Tool Programmer Name Role Phone DIONY Faust AUTM [phone] D.O. AUTM Problems Active Problems Provider Date Swelling of first metatarsal joint of hallux of right foot Cary Baldwin DPM Onset: 04/11/2020 Swelling of first [...] kg/m2 Results Description No Information Available Procedures Date Code Description Status 04/10/2020 02753 X-Ray Foot Complete Completed 04/10/2020 88119 X-Ray Foot Complete Completed Medical Devices Description No Information Available Encounters Type Date Location Provider Dx Diagnosis Office Visit 04/10/2020 10:15a [facility] Marino Baldwin DPM M21.611 Bunion of right foot M21.612 Bunion of left foot Assessments Date Code Description Provider 04/10/2020 M21.611 Bunion of right foot Marino velasquez DPM 04/10/2020 M21.612 Bunion of left foot Marino palomino DPM Plan of Treatment Future Appointment(s):* 06/30/2020 10:45 am - Marino Baldwin DPM at [facility] * 06/28/2020 1:00 pm - Marino Baldwin DPM at [facility] Functional Status Description No Information Available Mental Status Description No Information Available Referrals Description No Information Available
--- OUTSIDE RECORDS SUMMARY | 2020-06-28 07:13 | CCD ---
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.813 Active 16455093 Problem Smoker F17.200 Active 66614861 Problem Anxiety and depression F41.9 Active 943612968 Problem Tobacco dependence F17.200 Active 10165746 Problem Irregular menstruation N92.6 Active 07716958 Problem Condyloma A63.0 Active 80604582 ALLERGIES No Known Allergies ENCOUNTERS from 1982 to 2020-06-15 Encounter Location Date Provider Diagnosis [facility] [address] [place] [id number] Jun, Tanya Cook IMMUNIZATIONS Vaccine Route Administration Date Status Influenza [...] REASON FOR REFERRAL No Information VITAL SIGNS No information MEDICATIONS Medication SIG (Take, Route, Frequency, Duration) Notes Start Da te End Date Status Vistaril 25 MG 1 capsule as needed Orally every 8 hrs for 30 da y(s) Aug, Not-Taking Diflucan 150 MG 1 tablet Orally one time, may repeat in 3 days f or 1 day(s) Jun, Active Mirena Active PROCEDURES No Information RESULTS No Results REASON FOR VISIT refill MEDICAL (GENERAL) HISTORY Type Description Date Medical [...] No Information FUNCTIONAL STATUS No Information ASSESSMENTS No Information PLAN OF TREATMENT Medication Medication Name Sig Start Date Stop Date Diflucan 150 MG 1 tablet Orally one time, may repeat in 3 days for 1 day(s) Jun, Next Appt Details Provider Name:Wilda Beltre, 20 27-09-22 10:00:00 AM, [address] [place], [address], Insurance Providers Payer Name Payer Address Payer Phone Insured Name Patient Relati onship to Insured Coverage Start Date Coverage End Date BCBS [place] [id number] [facility] [employer] [facility] [place] [address] ARSH OROSCO self
--- OUTSIDE RECORDS SUMMARY | 2020-06-28 07:13 | CCD ---
Author Author [facility] Organization [facility] Address Unknown Phone Unavailable Care Team Providers Care Stock Saw Operator Name Role Phone Jazzy Looney Unavailable PROBLEMS Type Condition ICD9-CM Code [id number] Code Onset Dates Condition S tatus SNOMED Code Notes Problem Varicose veins of both lower extremities with pain I83.813 Active 88658271 Problem Smoker F17.200 Active 59322540 Problem Anxiety and depression F41.9 Active 036128699 Problem Tobacco dependence F17.200 Active 51330038 Problem Irregular menstruation N92.6 Active 28972542 Problem Condyloma A63.0 Active 38608735 ALLERGIES No Known Allergies ENCOUNTERS from 1982 to 2020-06-07 Encounter Location Date Provider Diagnosis [facility] [id number] [place] [id number], Jazzy Looney Encounter for other preprocedural examin ation Z01.818 IMMUNIZATIONS Vaccine Route Administration Date Status Influenza [...] FOR REFERRAL No Information VITAL SIGNS Weight 133 lbs May, Height 67 in May, BMI 20.83 kg/m2 May, Heart Rate 83 /min May, Respiratory Rate 18 /min May, Temperature 98.6 degrees Fahrenheit May, Oximetry 100 May, Blood pressure systolic 117 mm Hg May, Blood pressure diastolic 77 mm Hg May, MEDICATIONS Medication SIG (Take, Route, Frequency, Duration) Notes Start Da te End Date Status Vistaril 25 MG 1 capsule as needed Orally every 8 hrs for 30 da y(s) Aug, Not-Taking Mirena Active PROCEDURES No Information RESULTS No Results REASON FOR VISIT right bunionectomy pre-op evaluation MEDICAL (GENERAL) HISTORY Type Description Date Medical [...] Notes Treatment Notes Treatm ent Clinical Notes May, Encounter for other preprocedural examination (I CD-10 - Z01.818) I discussed the risks vs. benefits of surgery with the patient in generic terms. I feel that she is at lower than average risk for perioperative complications based on low RCRI (class 1 risk), and since the procedure is a low-risk procedure that will be performed with local anesthesia. She knows that there is always some risk with surgery and she has to be comfortable with that. For her, the benefits of surgery outweigh the risks in order to proceed. If she has further questions regarding the specifics of the proposed surgical procedure and specific risks, she should discuss them with the surgeon. I feel that the patient's acute and chronic medical conditions are fully optimized at the present time. There are no readily alterable factors that could lower the patient's perioperative risk. I have recommended the patient stop all medications as recommended by her surgeon and anesthesia. Right foot bunionectomy scheduled with Dr. Marino Clark on 06/28/2020; under local anesthesia. Patient recently had CMP, CBC, and lipid panel less than 2 months ago; no need for additional testing at this time. PLAN OF TREATMENT Treatment Notes Assessment Notes Clinical Notes Encounter for other preprocedural examination I discus sed the risks vs. benefits of surgery with the patient in generic terms. I feel that she is at lower than average risk for perioperative complications based on low RCRI (class 1 risk), and since the procedure is a low-risk procedure that will be performed with local anesthesia. She knows that there is always some risk with surgery and she has to be comfortable with that. For her, the benefits of surgery outweigh the risks in order to proceed. If she has further questions regarding the specifics of the proposed surgical procedure and specific risks, she should discuss them with the surgeon.I feel that the patient's acute and chronic medical conditions are fully optimized at the present time. There are no readily alterable factors that could lower the patient's perioperative risk.I have recommended the patient stop all medications as recommended by her surgeon and anesthesia. Right foot bunionectomy scheduled with Dr. Marino Clark on 06/28/2020; under local anesthesia. Patient recently had CMP, CBC, and lipid panel less than 2 months ago; no need for additional testing at this time. Next Appt Details prn Reason:f/u as needed Provider Name:Wilda Beltre, 27-09-22 10:00:00 AM, [facility] [place], [address], Follow Up:prnf/u as needed Insurance Providers Payer Name Payer Address Payer Phone Insured Name Patient Relati onship to Insured Coverage Start Date Coverage End Date BCJAZMIN WINN PPO [id number] [facility] [place] [address] ARSH OROSCO
--- OUTSIDE RECORDS SUMMARY | 2020-06-28 07:14 | CCD ---
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 12:00:00 AM EST Current Smoker completed Curre nt Smoker eCW1 ([facility]) Smoking 06/06/2020 12:00:00 AM EST Current Smoker completed Curre nt Smoker eCW1 ([facility]) Smoking 04/14/2020 12:00:00 AM EST Current Smoker completed Curre nt Smoker eCW1 ([facility]) Smoking 04/14/2020 12:00:00 AM EST Current Smoker completed Curre nt Smoker eCW1 ([facility]) Smoking 04/14/2020 12:00:00 AM EST Current Smoker completed Curre nt Smoker eCW1 ([facility]) Smoking 04/14/2020 12:00:00 AM EST Current Smoker completed Curre nt Smoker eCW1 ([facility]) Smoking 08/30/2019 12:00:00 AM EDT Current Smoker completed Curre nt Smoker eCW1 ([facility]) Vital Signs ID Date Data Source UNK Name Value Range Interpretation Code Description Data Source(s) Diastolic blood pressure 77 mm[Hg] 77 mm[Hg] eCW1 ([facility]) Systolic blood pressure 117 mm[Hg] 117 mm[Hg] e CW1 ([facility]) Body temperature 98.6 [degF] 98.6 [degF] eCW1 ( [facility]) Respiratory rate 18 /min 18 /min eCW1 (Replaced by [facility]) Heart rate 83 /min 83 /min eCW1 ([facility]) Body mass index (BMI) [Ratio] 20.83 kg/m2 20.83 kg/m2 eCW1 ([facility]) Body height 67 [in_i] 67 [in_i] eCW1 ([facility]) Body weight 133 [lb_av] 133 [lb_av] eCW1 ([facility]) Diastolic blood pressure 76 mm[Hg] 76 mm[Hg] eCW1 ([facility]) Systolic blood pressure 120 mm[Hg] 120 mm[Hg] e CW1 ([facility]) Body temperature 99 [degF] 99 [degF] eCW1 (Replaced by [facility]) Respiratory rate 18 /min 18 /min eCW1 (Replaced by [facility]) Heart rate 67 /min 67 /min eCW1 ([facility]) Body mass index (BMI) [Ratio] 20.05 kg/m2 20.05 kg/m2 eCW1 ([facility]) Body height 67 [in_i] 67 [in_i] eCW1 ([facility]) Body weight 128 [lb_av] 128 [lb_av] eCW1 ([facility]) Body mass index (BMI) [Ratio] 19.9 kg/m2 19.9 k g/m2 [facility] ([facility] Heart rate 92 /min 92 /min [facility] ([facility] Diastolic blood pressure 84 mm[Hg] 84 mm[Hg] [facility] ([facility] Systolic blood pressure 133 mm[Hg] 133 mm[Hg] M EDENT ([facility] Body weight 127.00 [lb_av] 127.00 [lb_av] MEDEN T ([facility] Body height 67 [in_i] 67 [in_i] [facility] ([facility] 5'7" Diastolic blood pressure 68 mm[Hg] 68 mm[Hg] eCW1 ([facility]) Systolic blood pressure 118 mm[Hg] 118 mm[Hg] e CW1 ([facility]) Body temperature 98.5 [degF] 98.5 [degF] eCW1 ( [facility]) Respiratory rate 18 /min 18 /min eCW1 (Replaced by [facility]) Heart rate 85 /min 85 /min eCW1 ([facility]) Body mass index (BMI) [Ratio] 20.2 kg/m2 20.2 k g/m2 eCW1 ([facility]) Body height 67 [in_i] 67 [in_i] eCW1 ([facility]) Body weight 58.51 kg 58.51 kg eCW1 ([facility]) Body weight 129.0 [lb_av] 129.0 [lb_av] eCW1 ([facility]) Body mass index (BMI) [Ratio] 20.36 kg/m2 20.36 kg/m2 eCW1 ([facility]) Body height 67 [in_i] 67 [in_i] eCW1 ([facility]) Body weight 58.97 kg 58.97 kg eCW1 ([facility]) Body weight 130 [lb_av] 130 [lb_av] eCW1 ([facility]) Diastolic blood pressure 72 mm[Hg] 72 mm[Hg] eCW1 ([facility]) Systolic blood pressure 130 mm[Hg] 130 mm[Hg] e CW1 ([facility]) Body temperature 98.7 [degF] 98.7 [degF] eCW1 ( [facility]) Respiratory rate 18 /min 18 /min eCW1 (Replaced by [facility]) Body mass index (BMI) [Ratio] 20.48 kg/m2 20.48 kg/m2 eCW1 ([facility]) Body height 67 [in_i] 67 [in_i] eCW1 ([facility]) Body weight 130.8 [lb_av] 130.8 [lb_av] eCW1 ([facility]) Diastolic blood pressure 80 mm[Hg] 80 mm[Hg] eCW1 ([facility]) Systolic blood pressure 122 mm[Hg] 122 mm[Hg] e CW1 ([facility]) Body mass index (BMI) [Ratio] 21.2 kg/m2 21.2 k g/m2 eCW1 ([facility]) Body height 67 [in_us] 67 [in_us] eCW1 ([facility]) Body weight Measured 135.4 [lb_av] 135.4 [lb_av ] eCW1 ([facility]) Diastolic blood pressure 82 mm[Hg] 82 mm[Hg] eCW1 ([facility]) Systolic blood pressure 128 mm[Hg] 128 mm[Hg] e CW1 ([facility]) Body mass index (BMI) [Ratio] 20.83 kg/m2 20.83 kg/m2 eCW1 ([facility]) Body height 67 [in_us] 67 [in_us] eCW1 ([facility]) Body weight Measured 133 [lb_av] 133 [lb_av] eC W1 ([facility]) Patient Treatment Plan of Care Planned Activity Planned Date Details Description Data Source (s) Fluconazole 150 MG Oral Tablet [Diflucan] 06/14/2020 12:00:00 AM ES T eCW1 ([facility]) Hydroxyzine Pamoate 25 MG Oral Capsule [Vistaril] 08/27/2019 12: 00:00 AM EDT eCW1 ([facility]) Spironolactone 50 MG Oral Tablet 06/25/2019 12:00:00 AM EST eCW1 ([facility]) Fluconazole 150 MG Oral Tablet [Diflucan] 06/25/2019 12:00:00 AM ES T eCW1 ([facility]) Valcyclovir-1000 mg TID 500 mg 06/25/2019 12:00:00 AM EST eCW1 ([facility]) Fluoxetine 10 MG Oral Tablet 05/21/2019 12:00:00 AM EST eCW1 ([facility])
[2020-06-28] MEDS ORDERED: MIDAZOLAM INJ 2MG/2ML VIAL (J2250 PER 1MG) As Ordered ONE (08:03)
[2020-06-28] MEDS ORDERED: LIDOCAINE 2% 100MG/5ML SDV (FOR ANES.) As Ordered ONE (08:03)
[2020-06-28] MEDS ORDERED: propofoL 200 MG/20 ML VIAL As Ordered ONE (08:03)
[2020-06-28] MEDS ORDERED: ACETAMINOPHEN 1000MG 100ML IV BTL (OFIRMEV) (J0131 PER 10MG) As Ordered ONE (09:21)
[2020-06-28] MEDS ORDERED: HYDR-3713 PO (10:03)
--- NOTE | 2020-06-28 10:49 | RO ---
OPERATIVE NOTE DATE OF OPERATION: 06/28/2020 PREOPERATIVE DIAGNOSIS: Right foot bunion hallux valgus. POSTOPERATIVE DIAGNOSIS: Right foot bunion hallux valgus. PROCEDURE: Right foot bunionectomy with first metatarsal osteotomy and Alex osteotomy. SURGEON: Marino Jose DPM AVIONICS REPAIR TECHNICIAN: Florencio ANESTHESIA: Monitored anesthesia care; preop injection of 20 mL of 1:1 mixture of 1% Lidocaine plain and 0.5% Marcaine plain. ESTIMATED BLOOD LOSS: Minimal. MATERIALS: Arthrex 3.5 headless compression screw; Arthrex DynaNite staple; 3 and 4-0 Vicryl and 4-0 nylon. INJECTABLES: 1 mL Decadron 4 mg/mL. COMPLICATIONS: None. CONDITION: Stable. INDICATIONS FOR PROCEDURE: Ms. Ocasio is a 40-year-old female who presented to [facility] with painful right bunion. She presents today for surgical correction. The patient's side and site were identified and marked in the preoperative holding area. Consent was reviewed. The risks, benefits, complications, and alternatives to the procedure were explained to the patient in detail and all questions were answered. DESCRIPTION OF PROCEDURE: The patient was brought to the operating room and placed on the operating room table in the supine position. Monitored anesthesia care was delivered by the anesthesia team. Preop injection of 20 mL of 1:1 mixture of 1% Lidocaine plain and 0.5% Marcaine plain were injected into the right foot. The right foot was prepped and draped in the normal sterile fashion. A tourniquet was applied to the right ankle and inflated to 250 mmHg. A dorsomedial incision was drawn and carried through with a #15 blade. Dissection was carried down to the first metacarpophalangeal joint. A T-capsulotomy was performed exposing the metatarsal head. Following this, a lateral release was performed releasing the lateral capsular adductor tendons and sesamoidal ligaments. A McGlamry elevator was used to release the plantar structures. Next, a sagittal saw was used to remove the medial eminence and an osteotomy was performed of the metatarsal head and neck transposing it laterally. This was fixed with an Arthrex 3.5 headless compression screw. The remaining bone ledges were resected with a sagittal saw and smoothed with a rasp. The site was irrigated with normal saline. Next, attention was paid to the proximal phalanx. A wedge of medial cortex was removed using the sagittal saw and this was fixated with an Arthrex DynaNite staple effectively placing the toe in a more medial position. The site was irrigated with normal saline. Capsular repair was performed with 3-0 Vicryl, subcutaneous closure with 4-0 Vicryl, and skin closure with 4-0 nylon. One mL of Decadron was injected. Sterile dressings were applied. Tourniquet was deflated. The patient was brought to the PACU with vital signs stable and neurovascular status in tact. She will be partial weightbearing. She will follow-up in the office in two days.
[2020-06-28] MEDS ORDERED: KETAMINE HCL 200 MG/20 ML VIAL As Ordered ONE (11:03)
[2020-06-28 11:15] VITALS: BP 119/70
== END 2020-06-28 11:35 | disposition home or self-care (01) ==
LOC: M SDC 07:09
PROVIDERS: ATTEND Podiatrist Foot & Ankle Surgery
DX: M20.11 Hallux valgus (acquired), right foot (principal); M21.611 Bunion of right foot; F17.218 Nicotine dependence, cigarettes, with other nicotine-induced disorders
CPT/HCPCS: 28299; 88300; 97116; 97161; C1713; J0131; J0690; J1100; J2250

== ENCOUNTER → 2020-09-26 | Outpatient (CLI) | payer OTHER ==
[~2020-09-26] MED LIST changes: -BUPIVACAINE HCL 0.5% 30 ML VIAL As Ordered ONE; +HYDR-3713 PO; -LIDOCAINE 1% MDV 20ML VIAL SQ PRN; -LIDOCAINE 1% SDV 30ML VIAL As Ordered ONE; -LR 1,000 ML IV ONE; -ceFAZolin SOD 2 GM in IV 1 EA IV ONE; -dexameTHASONE 4 MG/ML 1ML VIAL (J1100 PER 1MG) As Ordered ONE
--- NOTE | 2020-09-26 10:07 | REP ---
INDICATION: N63.10 BREAST MASS/RIGHT. "Right breast nodule 11 o'clock by the scar on the skin which was BI-RADS 4 category, unable to be biopsied with sono. Please comment on stability." COMPARISON: Comparison ultrasound March 17, 2020.. TECHNIQUE: Targeted sonography 11 o'clock position right breast. FINDINGS: Scanning in the area of interest study 11 o'clock position of the right breast demonstrates a subdermal hypoechoic nodule 6 x 6 x 3 mm which is unchanged from the March 17, 2020 study. Previous dimensions were 7 x 8 x 3 mm. The nodule remains just beneath the skin and just superficial to the augmentation implant. No other abnormality seen. IMPRESSION: Small hypoechoic nodule persists unchanged. The lack of progression since the March 17, 2020 exam does not exclude malignancy. <Electronically signed by Dannie Soliz > 09/26/20 [id number]
== END ==
LOC: M WHC 08:59
PROVIDERS: ATTEND Surgery
DX: N63.11 Unspecified lump in the right breast, upper outer quadrant (principal)

== ENCOUNTER → 2020-10-03 | Outpatient (CLI) | payer OTHER ==
[2020-10-03 12:48] LABS: FOLATE 20.5 NG/ML
== END ==
LOC: M WUC 09:10
PROVIDERS: ATTEND Family Medicine
DX: D75.89 Other specified diseases of blood and blood-forming organs (principal)

== ENCOUNTER → 2021-03-27 | Outpatient (REF) | payer OTHER | LOC: M SFHCWAGY 13:10 | PROVIDERS: ATTEND Advanced Practice Midwife | DX: Z12.4 Encounter for screening for malignant neoplasm of cervix (principal); R87.610 Atypical squamous cells of undetermined significance on cytologic smear of cervix (ASC-US) ==

== ENCOUNTER → 2021-04-13 | Outpatient (CLI) | payer OTHER ==
--- NOTE | 2021-04-13 13:21 | REP ---
INDICATION: LOW BACK PAIN. COMPARISON: None. TECHNIQUE: Five views FINDINGS: Five views of the lumbosacral spine show no acute fracture, dislocation or subluxation. The intervertebral disc spaces are symmetric and well maintained. There is no spondylolysis or spondylolisthesis. The pedicles are intact bilaterally and there is no destructive osseous lesion. IMPRESSION: Unremarkable lumbosacral spine series. <Electronically signed by Fernandez Veras > 04/13/21 [id number]
== END ==
LOC: M WUC 09:34
PROVIDERS: ATTEND Nurse Practitioner Family
DX: M54.50 Low back pain, unspecified (principal)

== ENCOUNTER → 2021-04-17 | Outpatient (CLI) | payer OTHER ==
--- NOTE | 2021-04-17 17:22 | REP ---
INDICATION: PELVIC PAIN. COMPARISON: 07/26/2014. TECHNIQUE: Transabdominal and transvaginal scanning performed. FINDINGS: Uterine dimensions are 9.0 x 4.6 x 4.1 cm. Endometrial echo is 5 mm in AP dimension and centrally placed. IUD is visualized within the endometrial canal. The bladder measures 8.3 x 6.2 x 10.4cm. The right ovary has dimensions of 3.7 x 2.1 x 2.4 cm. It's Doppler flow is normal with a resistive index of 0.50. The left ovary dimensions are 3.1 x 2.6 x 2.5 cm. It's Doppler flow was normal with resistive index of 0.56. There is no adnexal mass identified. No free fluid is seen in the cul-de-sac. IMPRESSION: IUD is visualized within the endometrial canal. Otherwise, negative pelvic ultrasound. <Electronically signed by Sergio Fernandez > 04/17/21 [id number]
== END ==
LOC: M WHC 11:02
PROVIDERS: ATTEND Advanced Practice Midwife
DX: R10.2 Pelvic and perineal pain (principal)

== ENCOUNTER → 2021-04-18 | Outpatient (REF) | payer OTHER | LOC: M SFHCWAGY 13:00 | PROVIDERS: ATTEND Obstetrics & Gynecology | DX: N72 Inflammatory disease of cervix uteri (principal); N87.0 Mild cervical dysplasia ==

== ENCOUNTER → 2021-12-07 | Outpatient (CLI) | payer OTHER ==
[2021-12-07 19:28] LABS: THYROID STIMULATING HORMONE 1.28 uIU/ML (0.358-3.740)
[2021-12-07 19:41] LABS: ESTRADIOL 85.9 PG/ML; LUTEINIZING HORMONE 7.9 mIU/mL
[2021-12-07 19:42] LABS: FOLLICLE STIMULATING HORMONE 4.2 mIU/mL
== END ==
LOC: M WUC 14:57
PROVIDERS: ATTEND Advanced Practice Midwife
DX: R68.82 Decreased libido (principal)

== ENCOUNTER → 2022-07-01 | Outpatient (CLI) | payer OTHER, MEDICAID ==
[2022-07-01 17:09] LABS: FOLLICLE STIMULATING HORMONE 4.6 mIU/ML; LUTEINIZING HORMONE 6.7 mIU/ML; PROGESTERONE 2.84 NG/ML
[2022-07-01 17:17] LABS: ESTRADIOL 105.8 PG/ML
[2022-07-03 23:07] LABS: TESTOSTERONE FREE (DIRECT) 4.8 pg/mL (0.0-4.2)
== END ==
LOC: M WUC 13:15
PROVIDERS: ATTEND Obstetrics & Gynecology
DX: N95.1 Menopausal and female climacteric states (principal); E34.9 Endocrine disorder, unspecified; F52.0 Hypoactive sexual desire disorder

== ENCOUNTER → 2022-10-02 | Outpatient (CLI) | payer OTHER, MEDICAID ==
[2022-10-02 19:59] LABS: ESTRADIOL 30.8 PG/ML; FOLLICLE STIMULATING HORMONE 2.9 mIU/ML; LUTEINIZING HORMONE 2.2 mIU/ML; PROGESTERONE 0.59 NG/ML
[2022-10-04 12:12] LABS: TESTOSTERONE FREE (DIRECT) 2.6 pg/mL (0.0-4.2)
== END ==
LOC: M WUC 15:53
PROVIDERS: ATTEND Obstetrics & Gynecology
DX: N95.1 Menopausal and female climacteric states (principal); E34.9 Endocrine disorder, unspecified; F52.0 Hypoactive sexual desire disorder

== ENCOUNTER → 2022-11-21 | Outpatient (REF) | payer OTHER | LOC: M LAB REF 11:30 | PROVIDERS: ATTEND Nurse Practitioner Family | DX: J02.9 Acute pharyngitis, unspecified (principal) ==

== ENCOUNTER → 2023-07-07 | Outpatient (REF) | payer OTHER | LOC: M SFHCWAGY 13:43 | PROVIDERS: ATTEND Advanced Practice Midwife | DX: Z12.4 Encounter for screening for malignant neoplasm of cervix (principal) | CPT/HCPCS: 87624; G0123 ==

== ENCOUNTER → 2023-09-08 | Outpatient (CLI) | payer OTHER ==
[2023-09-08 16:46] LABS: BASO % 0.5 % (0.0-1.0); EOS % 0.5 % (0.0-3.0); HEMATOCRIT 38.4 % (36.0-47.0); HEMOGLOBIN 13.1 g/dl (12.0-15.5); LYMPH # 1.3 10^3/uL (1.5-5.0); LYMPH % 30.7 % (24.0-44.0); MEAN CORPUSCULAR HEMOGLOBIN 33.3 pg (27.0-33.0); MEAN CORPUSCULAR HGB CONC 34.1 g/dl (32.0-36.5); MEAN CORPUSCULAR VOLUME 97.7 fl (80.0-96.0); MONO # 0.5 10^3/uL (0.0-0.8); MONO % 12.4 % (2.0-8.0); NEUTROPHILS # 2.3 10^3/uL (1.5-8.5); NEUTROPHILS % 55.7 % (36.0-66.0); PLATELET COUNT, AUTOMATED 220 10^3/uL (150-450); RED BLOOD COUNT 3.93 10^6/uL (4.00-5.40); WHITE BLOOD COUNT 4.1 10^3/uL (4.0-10.0)
[2023-09-08 17:11] LABS: ALBUMIN 4.2 G/DL (3.2-5.2); ALKALINE PHOSPHATASE 84 U/L (46-116); ALT/SGPT 23 U/L (7.0-40); AST/SGOT 27 U/L (<34); BILIRUBIN,TOTAL 0.4 MG/DL (0.3-1.2); BLOOD UREA NITROGEN 18 MG/DL (9-23); CALCIUM LEVEL 8.7 MG/DL (8.5-10.1); CARBON DIOXIDE LEVEL 26 MMOL/L (20-31); CHLORIDE LEVEL 104 MMOL/L (98-107); CREATININE FOR GFR 0.71 MG/DL (0.55-1.30); GLOMERULAR FILTRATION RATE > 60.0 (>58); GLUCOSE, FASTING 82 MG/DL (60-100); POTASSIUM SERUM 3.9 MMOL/L (3.5-5.1); SODIUM LEVEL 140 MMOL/L (136-145); TOTAL PROTEIN 6.8 G/DL (5.7-8.2)
[2023-09-08 17:12] LABS: FREE T4 0.99 NG/DL (0.89-1.76); THYROID STIMULATING HORMONE 0.755 uIU/ML (0.55-4.78)
== END ==
LOC: M WUC 10:52
PROVIDERS: ATTEND Family Medicine
DX: R00.2 Palpitations (principal)

== ENCOUNTER → 2023-09-10 | Outpatient (CLI) | payer OTHER | LOC: M PLAIMG 13:30 | PROVIDERS: ATTEND Family Medicine | DX: R00.2 Palpitations (principal) ==

== ENCOUNTER → 2025-05-25 | Outpatient (REF) | payer OTHER ==
[2025-05-27 13:56] LABS: HPV APTIMA Detected (Not Detected)
== END ==
LOC: M SFHCWAGY 10:26
PROVIDERS: ATTEND Physician Assistant
DX: Z12.4 Encounter for screening for malignant neoplasm of cervix (principal); R87.810 Cervical high risk human papillomavirus (HPV) DNA test positive
CPT/HCPCS: 87624; G0123

== ENCOUNTER → 2025-05-25 | Outpatient (CLI) | payer OTHER | LOC: M WHC 07:57 | PROVIDERS: ATTEND Physician Assistant | DX: Z12.31 Encounter for screening mammogram for malignant neoplasm of breast (principal) ==

== ENCOUNTER → 2025-05-26 | Outpatient (CLI) | payer OTHER | LOC: M RAD 14:38 | PROVIDERS: ATTEND Physician Assistant | DX: R10.23 Pelvic and perineal pain bilateral (principal) ==

== ENCOUNTER → 2025-05-31 | Outpatient (REF) | payer OTHER | LOC: M SFHCWAGY 17:42 | PROVIDERS: ATTEND Physician Assistant | DX: R87.610 Atypical squamous cells of undetermined significance on cytologic smear of cervix (ASC-US) (principal) ==